=== PATIENT | female | born 1980 | race Caucasian/White ===

== ENCOUNTER 2024-05-07 17:59 | Emergency (ER) | payer OTHER, SELFPAY ==
--- NOTE | ~2024-05-07 | CT_ITS ---
EXAMINATION: CT ABDOMEN AND PELVIS WITHOUT CONTRAST CLINICAL INFORMATION: Right upper and lower quadrant pain status post fall COMPARISON: None available. TECHNIQUE: Multidetector volumetric imaging was performed from the superior aspect of the liver through the pubic symphysis. Sagittal and coronal reformatted images were obtained on the technologist's workstation. This CT examination was performed using dose optimization techniques as appropriate, variously including the following: *Automated exposure control *Adjustment of mA and/or kV according to patient size (this includes techniques or standardized protocols for targeted exams where dose is matched to indication/reason for exam; i.e. extremities or head) *Use of iterative reconstruction technique DLP: 801 mGy-cm FINDINGS: LUNG BASES: The visualized lung bases are unremarkable. LIVER, GALLBLADDER, AND BILIARY TREE: The liver is normal in size, shape, and attenuation. No focal hepatic lesion or biliary ductal dilatation is present. Gallbladder is underdistended. PANCREAS: Unremarkable. SPLEEN: Unremarkable. ADRENAL GLANDS: Unremarkable. KIDNEYS AND URETERS: The kidneys are normal in size, shape, and attenuation. No hydronephrosis, hydroureter, or calculi seen. No perinephric stranding. BLADDER: Unremarkable. GASTROINTESTINAL TRACT: The small and large bowel are unremarkable. The appendix is unremarkable. ABDOMINAL WALL: No significant hernia is appreciated. LYMPH NODES: Normal. VASCULAR: Unremarkable. PELVIC VISCERA: Unremarkable. OSSEOUS STRUCTURES: Incidental discovery of a sessile bony projection arising from the superior aspect of the left femoral neck. No acute fractures or focal osseous lesions. CT/CT abdomen pelvis wo IV con IMPRESSION: 1. No acute abdominopelvic findings. 2. No acute fractures or dislocations. 3. Incidentally discovered sessile bony projection arising from the left femoral neck, favored to represent an osteochondroma. Given its location, correlate for femoral acetabular impingement (HENNY). Fleischner guidelines were followed.
[2024-05-07 18:18] VITALS: BP 109/64; PULSE 70; RESP 16; TEMP 36.8; O2SAT 95; BMI 39.9
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
[2024-05-07 20:03] LABS: MANUAL DIFF FLAG NO
[2024-05-07 20:05] LABS: Appearance Urine Cloudy; Color Urine Yellow; Glucose Urine UA Negative (Negative); Leukocyte Esterase Urine Negative (Negative); Nitrite Urine Negative (Negative); PH 5.5 (5.0-9.0); Specific Gravity - Urine >= 1.030 (1.005-1.025); Urine Blood Negative (Negative); Urine Ketones Trace mg/dL (Negative); Urine Protein Negative (Neg-Trace)
[2024-05-07 20:06] LABS: Basophils Absolute Auto 0.1 X10*3/uL (0.0-0.2); Basophils Percent Auto 0.7 % (0-2); Eosinophils Absolute Auto 0.2 X10*3/uL (0.0-0.4); Eosinophils Percent Auto 2.7 % (0-4); Hemoglobin 10.2 g/dl (12.0-16.0); Imm Gran Abs Auto 0.01 X10*3/uL (0.00-0.03); Imm Gran Pct Auto 0.1 % (0.0-0.4); Lymphocytes Absolute Auto 2.5 X10*3/uL (1.2-4.9); Lymphocytes Percent Auto 29.6 % (20-40); Mean Corpuscular Hemoglobin 23.4 pg (27.0-33.0); Monocytes Absolute Auto 0.7 X10*3/uL (0.1-1.2); Monocytes Percent Auto 7.7 % (2-11); Neutrophils Absolute Auto 5.1 x10*3/uL (2.0-8.3); Neutrophils Percent Auto 59.2 % (45-73); Platelet Count 345 X10*3/uL (160-400); Red Blood Count 4.36 X10*6/uL (4.20-5.50); Red Cell Distribution Width 17.4 % (11.0-16.0); White Blood Count 8.6 X10*3/uL (4.8-10.8)
[2024-05-07 20:21] LABS: Alanine Aminotransferase 21 U/L (0-31); Albumin Level 4.2 g/dL (3.5-5.0); Alkaline Phosphatase 107 U/L (39-117); Anion Gap 11 (12-20); Aspartate Amino Transferase 20 U/L (5-31); Bilirubin Total 0.3 mg/dL (0.0-1.0); Blood Urea Nitrogen 13 mg/dL (9-16); Calcium 9.5 mg/dL (8.4-10.2); Carbon Dioxide 28 mmol/L (22-29); Chloride 106 mmol/L (96-108); Creatinine Clr Calc Pharmacy 109.2; Estimated Glomerular Filt Rate > 60; Glucose Random 82 mg/dL (60-115); Magnesium 2.3 mg/dL (1.6-2.6); Potassium 4.1 mmol/L (3.3-5.1); Sodium 141 mmol/L (135-145)
[2024-05-07 20:32] LABS: HCG Quantitative < 2 mIU/mL
[2024-05-07] MEDS: Ketorolac Tromethamine 30 MG/ML VIAL IM (20:45)
[2024-05-07 22:00] VITALS: BP 113/53; PULSE 52; RESP 20; TEMP 36.8; O2SAT 98
[2024-05-07 23:05] VITALS: BP 113/53; PULSE 52; RESP 20; TEMP 36.8; O2SAT 98
== END 2024-05-07 23:06 | disposition home or self-care (01) ==
PROVIDERS: Physician Assistant Medical; Emergency Provider Emergency Medicine
DX: Z04.3 Encounter for examination and observation following other accident (principal); R10.31 Right lower quadrant pain; R10.11 Right upper quadrant pain
CPT/HCPCS: 36415; 74176; 80053; 81003; 83735; 84702; 85025; 96372; 99284; J1885

== ENCOUNTER 2024-11-09 14:34 | Emergency (ER) | payer OTHER, SELFPAY ==
--- NOTE | ~2024-11-09 | CT_ITS ---
CLINICAL HISTORY: epigastric pain CT abdomen and pelvis with contrast Comparison: CT of the abdomen pelvis from 05/07/2024. Findings: Mild bibasilar atelectasis. No liver mass. Spleen is nonenlarged. The adrenal glands are normal. Mild wall thickening gallbladder likely due to underdistention. Minimal volume loss of the pancreas. No hydronephrosis. Small mesenteric and periaortic lymph nodes are likely reactive. No small bowel obstruction. Severe stool burden is present, including the cecum. Imaged appendix is retrocecal and measures at the upper limits of normal. Uterus is anteverted. No adnexal soft tissue mass by CT. Mild/minimal wall thickening of the urinary bladder. Calcification of the anterior margin of urinary bladder is nonspecific and likely due to phleboliths. Additional phleboliths noted in the pelvis. Degenerative changes include lower lumbar facet arthropathy. Also mild osteoarthritis of the hips. Mild remodeling of the proximal left femur appears old/chronic including exophytic sclerosis of the upper portion of the left femoral neck approaching left greater trochanter. Enthesopathy is considered. This is not significantly changed from comparison. IMPRESSION: 1. Severe stool burden. No small bowel obstruction. 2. No significant change of nonspecific sclerosis of the proximal left femur compared to 05/07/2024. This document has been electronically signed by: Wang Saba MD on 11/09/2024 23:21:44
[2024-11-09 14:56] VITALS: BP 102/44; PULSE 70; RESP 16; TEMP 36.9; O2SAT 95; BMI 37.9
--- NOTE | 2024-11-09 14:56 | ED_ITS ---
HPI - General Adult General Chief complaint: Abdominal Pain Stated complaint: Rash On R Shoulder Foot & Priv Area Issues Time Seen by Provider: 11/09/24 20:16 History of Present Illness HPI narrative: patient is a 44-year-old female presents today with having abdominal pain. The pain is in the upper abdomen is diffuse. Patient denies any nausea vomiting no diarrhea. No fever no chills no chest pain or diaphoresis. Patient also complaining of cracking and callus to the bilateral heel area. Also complaining of a rash to the right shoulder area that is extremely pruritic. No pain. No fever no chills. No coughing or congestion. Finally patient also complaining of having a vaginal itch. Claims she is sexually active with 1 partner. There is no vaginal discharge noted. She was given a cream but it is still hurting. Denies any chance of being . No pain on urination. Related Data Previous Rx's ?Medication ?Instructions ?Recorded hydrocortisone 1 % topical cream 1 appl topical TID PRN itching 11/10/24 (Cortisone (hydrocortisone)) #28.35 grams polyethylene glycol 3350 17 17 g PO DAILY constipation #119 11/10/24 gram/dose oral powder (Miralax) grams Allergies Allergy/AdvReac Type Severity Reaction Status Date / Time No Known Allergies Allergy Verified 11/09/24 14:56 Review of Systems 2 Review of Systems: positive abdominal pain no diarrhea no pain on urination Yes all other systems are reviewed and are negative [facility] Past Medical History Attestation statement: The following information was validated with the patient. Social History Social History Advance Directives: No Advance Directives Information Provided: No Do you have a plan to hurt others: No Plan Patient : No Physical Exam ED Vital Signs: Vital Signs - 24 hr 11/09/24 14:56 11/09/24 19:40 11/09/24 22:18 Temperature 98.5 F 98.5 F 98.1 F Pulse Rate 70 57 57 Respiratory Rate 16 16 16 Blood Pressure 102/44 L 125/75 136/68 Pulse Oximetry 95 100 99 Oxygen Delivery Method Room Air Room Air Room Air 11/09/24 23:37 Temperature 97.9 F Pulse Rate 62 Respiratory Rate 16 Blood Pressure 147/84 H Pulse Oximetry 96 Oxygen Delivery Method Room Air BMI result Body Mass Index 37.9 Appearance: Alert. Oriented X3. No acute distress. Eyes: Pupils equal, round and reactive to light. ENT: Pharynx normal. Neck: Normal inspection. Neck supple. No lymph nodes noted. No crepitus CVS: Normal heart rate and rhythm. Pulses normal. Normal S1 and S2 Respiratory: No respiratory distress. Breath sounds normal. No Wheezing. No rales Abdomen: Soft and nontender. No rigidity. No distention. good BS x4 Pelvic exam was done with nursing present. There is no lesion noted externally. Patient has no gross vaginal discharge. There is no cervical motion tenderness elicited there is no adnexal tenderness Skin: Skin warm and dry. positive red dry skin over the right shoulder area. Pleuritic. Extremities: No lower extremity edema. Neurovascular intact to all extremities. No Lacerations. No Rash Neuro: Oriented X 3. No motor deficit. No sensory deficit. Moving all extermities. No slurred speech Course Course Course Narrative: This is a rapid medical exam performed by Jess Kc NP: Additional HPI, ROS, PE not included below will be deferred to primary provider. Patient is a 44-year-old [place] speaking female presenting with complaint of rash/cracks to feet, also has rash on her back, as well as vaginal discomfort, used a cream but symptoms have not improved. Also complaining of multiple bruises and abdominal pain. Plan: labs Medications Administered Discontinued Medications Generic Name Dose Route Start Last Admin Trade Name Freq PRN Reason Stop Dose Admin Iohexol 85 ml 11/09/24 22:42 11/09/24 22:42 Iohexol 350 Mg/Ml 100 Ml Infus..Btl IV 11/09/24 22:43 85 ml ONCE ONE Administration Medical Decision Making Medical Decision Making MDM Narrative: patient's white count is normal. No acute distress. Hemoglobin is 10. This is approximately baseline. White count is normal. LFTs are consistent with a fatty liver lipase is normal no evidence for pancreatic disease. test is negative no related issue. Urine showed no signs of infection. A CT scan of the abdomen pelvis was done. CT was positive for having lots of stool. There is no overt obstruction no abscess no perforation. No appendicitis. No diverticulitis. Will discharge patient home with MiraLax. Steroid cream for the shoulder rash. Ask patient to keep the feet clean and moisturized. Close follow-up with patient's primary physician on an outpatient basis. gonorrhea chlamydia still pending. Differential Diagnosis Differential Diagnoses: The differential diagnosis associated with the presentation includes related issue obstruction abscess perforation Admission/Observation Consideration of admission/observation: Escalation of care including admission/observation considered Lab Data MDM Lab Attestation statement: I reviewed the patient's lab results. 11/09/24 15:27 11/09/24 15:27 Labs: Lab Results 11/09/24 11/09/24 Range/Units 15:27 19:38 WBC 9.0 (4.8-10.8) X10*3/uL RBC 4.36 (4.20-5.50) X10*6/uL Hgb 10.1 L (12.0-16.0) g/dl Hct 33.5 L (37.0-47.0) % MCV 76.8 L (80.0-98.0) fL MCH 23.2 L (27.0-33.0) pg MCHC 30.1 L (31.0-35.0) g/dl RDW 17.5 H (11.0-16.0) % Plt Count 300 (160-400) X10*3/uL MPV 9.9 (9.4-12.3) fL Immature Gran % (Auto) 0.3 (0.0-0.4) % Neut % (Auto) 65.0 (45-73) % Lymph % (Auto) 24.2 (20-40) % [place] % (Auto) 7.4 (2-11) % Eos % (Auto) 2.3 (0-4) % Baso % (Auto) 0.8 (0-2) % Lymph # (Auto) 2.2 (1.2-4.9) X10*3/uL [place] # (Auto) 0.7 (0.1-1.2) X10*3/uL Eos # (Auto) 0.2 (0.0-0.4) X10*3/uL Baso # (Auto) 0.1 (0.0-0.2) X10*3/uL Abs Immat Gran (auto) 0.03 (0.00-0.03) X10*3/uL Absolute Neuts (auto) 5.8 (2.0-8.3) x10*3/uL Absolute Nucleated RBC 0.000 (0.0-0.012) X10*3/uL Nucleated RBC % (auto) 0.0 (0.0-0.2) /100WBC PT 11.4 (10.9-12.4) SEC INR 1.0 (0.9-1.1) Sodium 141 (135-145) mmol/L Potassium 4.5 (3.3-5.1) mmol/L Chloride 106 (96-108) mmol/L Carbon Dioxide 30 H (22-29) mmol/L Anion Gap 10 L (12-20) BUN 12 (9-16) mg/dL Creatinine 0.68 (0.5-1.4) mg/dL Estim Creat Clear Calc 118.3 Estimated GFR > 60 Random Glucose 92 (60-115) mg/dL Calcium 9.2 (8.4-10.2) mg/dL Magnesium 2.0 (1.6-2.6) mg/dL Total Bilirubin 0.5 (0.0-1.0) mg/dL AST 29 (5-31) U/L ALT 38 H (0-31) U/L Alkaline Phosphatase 96 (39-117) U/L Total Protein 8.1 H (6.5-8.0) g/dL Albumin 3.9 (3.5-5.0) g/dL Lipase 11 (8-78) U/L Beta HCG, Quant < 2 mIU/mL Urine Color Yellow Urine Appearance Clear Urine pH 5.5 (5.0-9.0) Ur Specific [place] >= 1.030 H (1.005-1.025) Urine Protein Negative (Neg-Trace) mg/dL Urine Glucose (UA) Negative (Negative) mg/dL Urine Ketones Negative (Negative) mg/dL Urine Blood Negative (Negative) Urine Nitrite Negative (Negative) Ur Leukocyte Esterase Negative (Negative) Independent Interpretation I performed an independent interpretation of an: CT Scan ( CT scan of the abdomen grossly negative for obstruction no abscess no perforation) Radiology Impression Discussion of test interpretation with radiology: I have reviewed the radiologist's reading. External Record Review prior ED record was reviewed Social Determinants Patient?s care significantly limited by Social Determinants of Health including: Problems related to primary support group Discharge Plan Discharge Clinical Impression: Constipation, Eczema Patient Disposition: Home, Self-Care Instructions: Constipation (DC), Dermatitis (ED) Prescriptions: New polyethylene glycol 3350 [Miralax] 17 gram/dose powder 17 g PO DAILY Qty: 119 0RF Rx Instructions: please mix 17 g with 8 oz of liquid taken daily for constipation hydrocortisone [Cortisone (hydrocortisone)] 1 % cream 1 appl topical TID PRN (Reason: itching) Qty: 28.35 0RF Rx Instructions: applied to the right shoulder itching area Referrals: [facility] [Provider Group] Stand Alone Forms: Work/School Release Print Language: [place] Island[place]
[2024-11-09 15:31] LABS: MANUAL DIFF FLAG NO
[2024-11-09 15:32] LABS: Basophils Absolute Auto 0.1 X10*3/uL (0.0-0.2); Basophils Percent Auto 0.8 % (0-2); Eosinophils Absolute Auto 0.2 X10*3/uL (0.0-0.4); Eosinophils Percent Auto 2.3 % (0-4); Hematocrit 33.5 % (37.0-47.0); Hemoglobin 10.1 g/dl (12.0-16.0); Imm Gran Abs Auto 0.03 X10*3/uL (0.00-0.03); Imm Gran Pct Auto 0.3 % (0.0-0.4); Lymphocytes Absolute Auto 2.2 X10*3/uL (1.2-4.9); Lymphocytes Percent Auto 24.2 % (20-40); Mean Corpuscular HGB Conc 30.1 g/dl (31.0-35.0); Mean Corpuscular Hemoglobin 23.2 pg (27.0-33.0); Mean Corpuscular Volume 76.8 fL (80.0-98.0); Mean Platelet Volume 9.9 fL (9.4-12.3); Monocytes Absolute Auto 0.7 X10*3/uL (0.1-1.2); Monocytes Percent Auto 7.4 % (2-11); Neutrophils Absolute Auto 5.8 x10*3/uL (2.0-8.3); Platelet Count 300 X10*3/uL (160-400); Red Blood Count 4.36 X10*6/uL (4.20-5.50); Red Cell Distribution Width 17.5 % (11.0-16.0)
[2024-11-09 15:50] LABS: Prothrombin Time 11.4 SEC (10.9-12.4)
[2024-11-09 15:53] LABS: Alanine Aminotransferase 38 U/L (0-31); Albumin Level 3.9 g/dL (3.5-5.0); Anion Gap 10 (12-20); Aspartate Amino Transferase 29 U/L (5-31); Bilirubin Total 0.5 mg/dL (0.0-1.0); Blood Urea Nitrogen 12 mg/dL (9-16); Calcium 9.2 mg/dL (8.4-10.2); Carbon Dioxide 30 mmol/L (22-29); Chloride 106 mmol/L (96-108); Creatinine Clr Calc Pharmacy 118.3; Estimated Glomerular Filt Rate > 60; Glucose Random 92 mg/dL (60-115); HCG Quantitative < 2 mIU/mL; Lipase 11 U/L (8-78); Potassium 4.5 mmol/L (3.3-5.1); Sodium 141 mmol/L (135-145); Total Protein 8.1 g/dL (6.5-8.0)
[2024-11-09 16:16] LABS: Alkaline Phosphatase 96 U/L (39-117)
[2024-11-09 19:40] VITALS: BP 125/75; PULSE 57; RESP 16; TEMP 36.9; O2SAT 100
[2024-11-09 19:46] LABS: Appearance Urine Clear; Color Urine Yellow; Glucose Urine UA Negative (Negative); Leukocyte Esterase Urine Negative (Negative); Nitrite Urine Negative (Negative); PH 5.5 (5.0-9.0); Specific Gravity - Urine >= 1.030 (1.005-1.025); Urine Blood Negative (Negative); Urine Ketones Negative (Negative); Urine Protein Negative (Neg-Trace)
[2024-11-09 22:18] VITALS: BP 136/68; PULSE 57; RESP 16; TEMP 36.7; O2SAT 99
[2024-11-09] MEDS: iohexoL 350 MG/ML 100 ML INFUS..BTL 85 ML IV (22:42)
[2024-11-09 23:37] VITALS: BP 147/84; PULSE 62; RESP 16; TEMP 36.6; O2SAT 96
--- NOTE | 2024-11-09 23:38 | PC.NURSE ---
assumed care of pt at this time. patient waiting for results of CT, reporting feeling relief from abd pain. call camacho given
[2024-11-10 00:15] VITALS: BP 147/84; PULSE 62; RESP 16; TEMP 36.6; O2SAT 96
[2024-11-10 01:25] LABS: CT PCR NOT DETECTED (Not Detect.); NG PCR NOT DETECTED (Not Detect.)
== END 2024-11-10 00:17 | disposition home or self-care (01) ==
PROVIDERS: Registered Nurse Emergency; Emergency Provider Emergency Medicine Emergency Medical Services
DX: K59.00 Constipation, unspecified (principal); L30.9 Dermatitis, unspecified; R10.2 Pelvic and perineal pain; L84 Corns and callosities; R10.13 Epigastric pain; Z79.899 Other long term (current) drug therapy
CPT/HCPCS: 36415; 74177; 80053; 81003; 83690; 83735; 84702; 85025; 85610; 87491; 87591; 99283; 99284; Q9967

== ENCOUNTER → 2024-11-09 21:04 | Outpatient (BNV) | payer OTHER, SELFPAY | PROVIDERS: Emergency Provider Emergency Medicine Emergency Medical Services; Visit Provider Radiology Neuroradiology | DX: K56.41 Fecal impaction (principal) | CPT/HCPCS: 74177 ==